=== PATIENT | female | born 1940 | race Two or more races ===

== ENCOUNTER 2023-04-08 22:35 | Emergency (ER) | payer MEDICARE, BC ==
[~2023-04-08] VITALS: Ht 157.5 cm; Wt 68.0 kg
[2023-04-08 23:44] LABS: BASOPHILS # (AUTO) 0.1 K/uL (0.0-0.2); BASOPHILS % (AUTO) 0.5 % (0.0-2.0); EOSINOPHILS # (AUTO) 0.5 K/uL (0.0-0.7); EOSINOPHILS % (AUTO) 5.2 % (0.0-6.0); HEMATOCRIT 38 % (33-45); HEMOGLOBIN 12.4 g/dL (11.5-14.8); LYMPHOCYTES % (AUTO) 18.9 % (20.0-44.0); MEAN CORPUSCULAR HEMOGLOBIN 32 PG (26.0-33.0); MEAN CORPUSCULAR HGB CONC 33 g/dl (31.0-36.0); MEAN CORPUSCULAR VOLUME 97 fL (82-100); MONOCYTES # (AUTO) 0.7 K/uL (0.1-1.30); MONOCYTES % (AUTO) 6.8 % (2.0-12.0); NEUTROPHILS # (AUTO) 7.1 K/uL (1.8-8.9); NEUTROPHILS % (AUTO) 68.6 % (43.0-81.0); PLATELET COUNT (AUTO) 321 K/uL (150-450); RED BLOOD CELL COUNT(AUTO) 3.92 MIL/uL (4.0-5.2); RED CELL DISTRIBUTION WIDTH 14.3 % (11.5-15.0); WHITE BLOOD COUNT (AUTO) 10.3 K/uL (4.3-11.0)
[2023-04-08 23:49] LABS: CALCIUM, SERUM 10.4 mg/dL (8.5-10.1); CARBON DIOXIDE 24 mmol/L (21-32); CHLORIDE 105 mmol/L (98-107); CREATININE 1.8 mg/dL (0.6-1.3); GLUCOSE 116 mg/dL (74-106); POTASSIUM 4.2 mmol/L (3.5-5.1); SODIUM SERUM 137 mmol/L (136-145); UREA NITROGEN, BLOOD 40 mg/dL (7-18)
[2023-04-09] MEDS: IV NS 0.9% 1,000 ML IV PRN (01:09)
[2023-04-09 03:27] VITALS: BP 118/62; TEMP 98; O2SAT 97
== END 2023-04-09 03:30 | disposition home or self-care (01) ==
LOC: ER 22:38
DX: R42 Dizziness and giddiness (principal); A08.4 Viral intestinal infection, unspecified; I10 Essential (primary) hypertension
CPT/HCPCS: 99285; 71045; 93005 ×2; 85025; 80048; 36415 ×2; 84484 ×2; 96360; J7030